=== PATIENT | female | born 1960 | race Caucasian/White ===

== ENCOUNTER 2017-06-15 11:19 | Emergency (ER) | payer BC ==
--- NOTE | 2017-06-15 12:51 | ED Physician Documentation ---
PD HPI LOWER EXT INJURY - Stated complaint Stated Complaint: RT LEG INJURY - Chief complaint Chief Complaint: Ext Problem - History obtained from History obtained from: Patient - History of Present Illness PD HPI LOW EXT INJURY LOCATION: Right, Lower leg (ward) Type of injury: Blunt / blow (heavy piece of furniture she was helping to carry fell against her leg as lowering it and caused bruising and abrasion.) Where injury occurred: Home Timing - onset: Today Timing - details: Abrupt onset Improved by: Rest, Ice Worsened by: Palpating Associated symptoms: Swelling. No: Weakness, Numbness Contributing factors: No: Anticoagulated Similar symptoms before: Has not had sx before Recently seen: Not recently seen Review of Systems Skin: reports: Abrasion (s) Neurologic: denies: Focal weakness, Numbness, Near syncope PD PAST MEDICAL HISTORY - Past Medical History Cardiovascular: None Respiratory: Asthma Neuro: None Endocrine/Autoimmune: None - Present Medications Home Medications: Ambulatory Orders Medication Instructions Recorded Confirmed Albuterol 2 puffs PO Q4HR PRN 06/15/17 06/15/17 HYDROcod/ACETAM 5/325 [[place] 5/325] 1 tab PO Q6H PRN #12 tablet 06/15/17 Levothyroxine [Synthroid] 125 mcg PO DAILY 06/15/17 06/15/17 Trazodone HCl 50 mg PO DAILY PM PRN 06/15/17 06/15/17 - Allergies Allergies/Adverse Reactions: Allergies Allergy/AdvReac Type Severity Reaction Status Date / Time No Known Drug Allergies Allergy Verified 06/15/17 11:25 PD ED PE NORMAL - Vitals Vital signs reviewed: Yes - General General: Alert and oriented X 3, No acute distress, Well developed/nourished - Derm Derm: Normal color, Warm and dry - Extremities Extremities: Other (right ward with bruise and swelling mid anterior and abrasion from mid ward down to just above ankle. No posterior tenderness. ) - Neuro Neuro: Alert and oriented X 3, No motor deficit, No sensory deficit Results - Vitals Vitals: Vital Signs - 24 hr 06/15/17 06/15/17 11:23 14:28 Temperature 36.5 C Heart Rate 49 L 68 Respiratory 14 16 Rate Blood Pressure 130/75 136/70 H O2 Saturation 99 98 - Rads (name of study) right tib/fib Radiology: Prelim report reviewed, EMP read contemporaneously (soft tissue swelling; no fracture) PD MEDICAL DECISION MAKING - ED course Complexity details: reviewed results, considered differential, d/w patient Departure - Departure Disposition: 01 Home, Self Care Clinical Impression: Abrasion, right lower leg, initial encounter Contusion of leg, right Qualifiers: Encounter type: initial encounter Qualified Code(s): S80.11XA - Contusion of right lower leg, initial encounter Condition: Stable Record reviewed to determine appropriate education?: Yes Instructions: ED Abrasion Prescriptions: HYDROcod/ACETAM 5/325 [[place] 5/325] 1 tab PO Q6H PRN #12 tablet PRN Reason: Pain Comments: Cleanse the wound twice daily with soap and water and apply ointment. He can apply ice and elevate the leg today to help reduce swelling. This will likely turn bruised in the lower leg and may even reach down to the ankle area. Tylenol or ibuprofen if needed for pain. Add hydrocodone if needed. Weightbearing and use of the leg as able. There is no fractures noted on x- ray. Recheck if signs of infection. Discharge Date/Time: 06/15/17 14:28
[2017-06-15] MEDS ORDERED: HYDROcod/ACETAM 5/325 MG TABLET PO STA (13:03)
[2017-06-15] MEDS ORDERED: LIDOCAINE OINTMENT 5% 35.44 GM TUBE TOP STA (13:03)
[2017-06-15] MEDS ORDERED: TETANUS/DIPHTHERIA/PERTUSSIS 0.5 ML SYRINGE IM ONE ×2 (13:03→13:14)
[2017-06-15] MEDS ORDERED: NAPROXEN 250 MG TABLET PO STA (13:03)
[2017-06-15] MEDS ORDERED: NAPROXEN 250 MG TABLET PO ONE (13:13)
[2017-06-15] MEDS ORDERED: HYDROcod/ACETAM 5/325 MG TABLET ONE (13:14)
[2017-06-15] MEDS ORDERED: LIDOCAINE OINTMENT 5% 35.44 GM TUBE ONE (13:14)
--- NOTE | 2017-06-15 13:27 | XRAY Preliminary Report ---
Exam: XR Tib/Fib RT IMPRESSION: 1. Mild right leg soft tissue thickening in keeping with reported soft tissue injury/hematoma. 2. No underlying fracture. No radiopaque retained foreign body. [facility] SITE ID: [id number]
--- NOTE | 2017-06-15 13:29 | XRAY Report ---
EXAM: RIGHT TIBIA/FIBULA RADIOGRAPHY EXAM DATE: 06/15/2017 12:24 PM. CLINICAL HISTORY: Hematoma to RLE with pain after injury. COMPARISON: None. TECHNIQUE: 2 views. FINDINGS: Bones: Normal. No fracture or bone lesion. Joints: Nonweightbearing study. Mild osteophyte formation at the knee. Soft Tissues: Mild soft tissue thickening about the leg. IMPRESSION: 1. Mild right leg soft tissue thickening in keeping with reported soft tissue injury/hematoma. 2. No underlying fracture. No radiopaque retained foreign body. [facility] Referring Provider Line: [phone] SITE ID: [id number]
[2017-06-15 14:30] VITALS: BP 136/70
== END 2017-06-15 14:28 | disposition home or self-care (01) ==
LOC: ED 11:19
DX: S80.11XA Contusion of right lower leg, initial encounter (principal); W22.8XXA Striking against or struck by other objects, initial encounter; Y92.009 Unspecified place in unspecified non-institutional (private) residence as the place of occurrence of the external cause; Z23 Encounter for immunization
CPT/HCPCS: 73590; 90471; 90715; 99283; A9270

== ENCOUNTER 2017-12-04 15:16 | Outpatient (CLI) | payer BC ==
[2017-12-04 18:20] LABS: THYROID STIMULATING HORMONE 0.21 uIU/mL (0.34-5.60)
[2017-12-04 18:21] LABS: FREE T4 (FREE THYROXINE) 1.16 ng/dL (0.58-1.64)
[2017-12-06 12:56] LABS: THYROID PEROXIDASE ANTIBODIES 32 IU/mL (<9)
== END 2017-12-04 15:17 | disposition home or self-care (01) ==
LOC: LAB.F 15:16
PROVIDERS: ATTEND Naturopath
DX: E06.3 Autoimmune thyroiditis (principal)
CPT/HCPCS: 36415; 83615; 84439; 84443; 84481; 86376; 86800

== ENCOUNTER 2019-11-02 10:13 | Outpatient (CLI) | payer BC ==
--- NOTE | 2019-11-02 11:05 | XRAY Report ---
Reason: S90.121A CONTUSION OF R LESSER TOE Procedure Date: 11/02/2019 Accession Number: [id number] / [id number] Procedure: XRS - Toe(s) RT CPT Code: Final Report FULL RESULT: EXAM: RIGHT TOE RADIOGRAPHY EXAM DATE: 11/02/2019 10:42 AM. CLINICAL HISTORY: S90. 121A CONTUSION OF R TOE. COMPARISON: None. TECHNIQUE: 3 views. FINDINGS: Bones: Lucency in the first distal phalanx is consistent with a comminuted, minimally displaced distal phalangeal fracture. No other fracture line seen. Joints: No subluxations. Soft Tissues: Diffuse soft tissue swelling in the great toe. IMPRESSION: 1. Comminuted minimally displaced first distal phalangeal fracture is seen with surrounding soft tissue swelling. [facility]
== END 2019-11-02 10:14 | disposition home or self-care (01) ==
LOC: DI.S 10:13
PROVIDERS: ATTEND Registered Nurse
DX: S92.421A Displaced fracture of distal phalanx of right great toe, initial encounter for closed fracture (principal)
CPT/HCPCS: 73660

== ENCOUNTER 2019-11-18 14:27 | Outpatient (CLI) | payer BC ==
--- NOTE | 2019-11-19 09:27 | XRAY Report ---
Reason: CLOSED FRACTURE OF DISTAL PHALANX OF GREAT TOE Procedure Date: 11/18/2019 Accession Number: [id number] / [id number] Procedure: XRS - Toe(s) RT CPT Code: Final Report FULL RESULT: EXAM: RIGHT TOE RADIOGRAPHY EXAM DATE: 11/18/2019 02:39 PM. CLINICAL HISTORY: Great toe injury, fracture follow-up. COMPARISON: TOE(S) RT 11/02/2019 10:42 AM. TECHNIQUE: 3 views. FINDINGS: Bones: Again evident is a comminuted but nondisplaced fracture of the first distal phalanx involving the diaphysis and tuft. The fracture line extends to the lateral margin of the first IP joint as before. Joints: Normal. No subluxations. Soft Tissues: Some soft tissue swelling likely present. IMPRESSION: No interval change in nondisplaced comminuted first distal phalangeal fracture. [facility]
== END 2019-11-18 14:28 | disposition home or self-care (01) ==
LOC: DI.S 14:27
PROVIDERS: ATTEND Registered Nurse
DX: S92.424A Nondisplaced fracture of distal phalanx of right great toe, initial encounter for closed fracture (principal)
CPT/HCPCS: 73660

== ENCOUNTER 2020-10-27 11:02 | Outpatient (CLI) | payer BC ==
[2020-10-27 16:00] LABS: ALBUMIN 4.7 g/dL (3.2-5.5); ALBUMIN/GLOBULIN RATIO 1.7 (1.0-2.2); BILIRUBIN,TOTAL 0.7 mg/dL (0.2-1.0); CALCIUM 10.1 mg/dL (8.5-10.3); CREATININE 0.9 mg/dL (0.4-1.0); CRP - C-REACTIVE PROTEIN 1.4 mg/dL (0-1.0); TOTAL PROTEIN 7.4 g/dL (6.7-8.2)
== END 2020-10-27 11:03 | disposition home or self-care (01) ==
LOC: DI.S 11:02 → LAB.S 11:03
PROVIDERS: ATTEND Nurse Practitioner Family
DX: M25.551 Pain in right hip (principal)
CPT/HCPCS: 36415; 80053; 85651; 86140

== ENCOUNTER 2020-10-27 11:19 | Outpatient (CLI) | payer BC ==
--- NOTE | 2020-10-27 15:18 | XRAY Report ---
PROCEDURE: Hip w/Pelvis 2-3V RT INDICATIONS: PX IN RT HIP TECHNIQUE: AP pelvis with lateral view(s) of the bilateral hip(s). COMPARISON: None. FINDINGS: Bones: No fractures or dislocations. Pelvic ring appears intact. No suspicious bony lesions. Mini mal early degenerative narrowing within the hips bilaterally. No erosions. Soft tissues: The visualized bowel gas pattern is normal. No suspicious soft tissue calcifications. IMPRESSION: Minimal early arthritic change within the hips bilaterally. Reviewed by: Marilin Munoz MD on 10/27/2020 3:17 PM PST Approved by: Marilin Munoz MD on 10/27/2020 3:17 PM PST Station ID: [id number]
== END 2020-10-27 11:20 | disposition home or self-care (01) ==
LOC: DI.S 11:19
PROVIDERS: ATTEND Nurse Practitioner Family
DX: M16.0 Bilateral primary osteoarthritis of hip (principal); M25.551 Pain in right hip
CPT/HCPCS: 36415; 80053; 85651; 86140

== ENCOUNTER 2020-12-06 09:49 | Outpatient (CLI) | payer BC ==
--- NOTE | 2020-12-08 07:09 | Mammography Report ---
BILATERAL DIGITAL SCREENING MAMMOGRAM 3D/2D WITH EXAGGERATED CC: 12/06/2020 CLINICAL: Routine screening. Comparison is made to exams dated: 07/23/2018 mammogram, 01/16/2017 mammogram, and 06/29/2015 mammogra m - [facility]. There are scattered fibroglandular elements in both breasts. No significant masses, calcifications, or other findings are seen in either breast. There has been no significant interval change. IMPRESSION: NEGATIVE There is no mammographic evidence of malignancy. A 1 year screening mammogram is recommended. This exam was interpreted at Station ID: [id number]. NOTE: For mammograms, a report in lay terms will be sent to the patient. Approximately 15% of breast malignancies will not be visualized mammographically. In the management of a palpable breast mass, a negative mammogram must not discourage biopsy of a clinically suspicious lesion. Electronically Signed By: Mily phillips/[email or web address]:12/07/2020 16:32:00 ACR BI-RADS Category 1: Negative 3341F PARENCHYMAL PATTERN: (A) - The breast(s) demonstrate(s) scattered fibroglandular densities. BI-RADS CATEGORY: (1) - 1 RECOMMENDATION: (ANNUAL) - Recommend routine annual screening mammography. [id number] 1 year screening LATERALITY: (B)
== END 2020-12-06 09:50 | disposition home or self-care (01) ==
LOC: DI.S 09:49
PROVIDERS: ATTEND Registered Nurse
DX: Z12.31 Encounter for screening mammogram for malignant neoplasm of breast (principal)

== ENCOUNTER 2021-05-23 11:30 | Emergency (ER) | payer BC ==
[2021-05-23 12:17] LABS: BASOPHILS # (AUTO) 0.1 10^3/uL (0.0-0.1); EOSINOPHILS # (AUTO) 0.1 10^3/uL (0.0-0.7); HCT - HEMATOCRIT 43.7 % (37.0-47.0); HGB - HEMOGLOBIN 14.6 g/dL (12.0-16.0); LYMPHOCYTES # (AUTO) 1.7 10^3/uL (1.5-3.5); LYMPHOCYTES % (AUTO) 27.6 %; MEAN CORPUSCULAR HEMOGLOBIN 31.9 pg (27.0-31.0); MEAN CORPUSCULAR HGB CONC 33.4 g/dL (32.0-36.0); MEAN CORPUSCULAR VOLUME 95.6 fL (81.0-99.0); MEAN PLATELET VOLUME 8.9 fL (7.9-10.8); MONOCYTES # (AUTO) 0.4 10^3/uL (0.0-1.0); MONOCYTES % (AUTO) 6.3 %; NEUTROPHILS # (AUTO) 3.9 10^3/uL (1.5-6.6); NEUTROPHILS % (AUTO) 63.8 %; PLT - PLATELET COUNT 251 10^3/uL (130-450); RED BLOOD COUNT 4.57 10^6/uL (4.20-5.40); RED CELL DISTRIBUTION WIDTH 12.6 % (12.0-15.0); WHITE BLOOD COUNT 6.1 x10^3/uL (4.8-10.8)
--- NOTE | 2021-05-23 12:27 | ED Physician Documentation ---
PD HPI ABD PAIN - Stated complaint Stated Complaint: LT SIDE PX - Chief complaint Chief Complaint: Abd Pain - History obtained from History obtained from: Patient - History of Present Illness Timing - onset: How many days ago (2) Timing - details: Gradual onset (She woke with pain in the left low back radiating to the left abdomen 2 days ago that has been consistent and increa sing.) Quality: Aching, Pain Location: LUQ, LLQ Radiation: Lower back, Left flank Improved by: Laying still. No: Eating Worsened by: Moving, Palpation. No: Eating, Breathing Associated symptoms: Nausea. No: Fever, Vomiting, Diarrhea, Dysuria, Hematuria, Loss of appetite Similar symptoms before: Has not had sx before Recently seen: Clinic (Today and was referred to the ER for better evaluation.) Review of Systems Constitutional: denies: Fever, Chills Nose: denies: Rhinorrhea / runny nose, Congestion Throat: denies: Sore throat Respiratory: denies: Cough GI: reports: Abdominal Pain, Nausea. denies: Vomiting, Constipation, Diarrhea : denies: Dysuria, Hematuria, Discharge Skin: denies: Rash PD PAST MEDICAL HISTORY - Past Medical History Cardiovascular: None, Other (history of slow heart rate without symptoms. 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 - Present Medications Home Medications: Ambulatory Orders Medication Instructions Recorded Confirmed Albuterol 2 puffs PO Q4HR PRN 06/15/17 05/23/21 Levothyroxine [Synthroid] 125 mcg PO DAILY 06/15/17 05/23/21 Trazodone HCl 50 mg PO DAILY PM PRN 06/15/17 05/23/21 Docusate Sodium 100Mg Capsule 100 mg PO DAILY #10 cap 05/23/21 [Colace 100Mg Capsule] Oxycodone HCl/Acetaminophen 1 each PO Q4H PRN #14 tablet 05/23/21 [Percocet 5-325 mg Tablet] - Allergies Allergies/Adverse Reactions: Allergies Allergy/AdvReac Type Severity Reaction Status Date / Time No Known Drug Allergies Allergy Verified 05/23/21 11:50 - Social History Does the pt smoke?: No Smoking Status: Never smoker Does the pt drink ETOH?: Yes Does the pt have substance abuse?: No - Immunizations Immunizations are current?: No Immunizations: TDAP >10years/unknown PD ED PE NORMAL - Vitals Vital signs reviewed: Yes - General General: Alert and oriented X 3, No acute distress, Well developed/nourished - Cardiac Cardiac: RRR, No murmur - Respiratory Respiratory: Clear bilaterally - Abdomen Abdomen: Normal bowel sounds, Soft, Non distended, No organomegaly, Other (She has tenderness in the left low back around the level of L4 and L5 but not midline. No rash. No tenderness to light palpation. Left abdomen is tender to palpation with mild local rebound.) - Female Female : Deferred - Rectal Rectal: Deferred - Derm Derm: Normal color, Warm and dry, No rash - Extremities Extremities: No tenderness to palpate, Normal ROM s pain, No edema, No calf tenderness / cord - Neuro Neuro: Alert and oriented X 3, No motor deficit, Normal speech Results - Vitals Vitals: Vital Signs - 24 hr 05/23/21 05/23/21 05/23/21 11:45 13:11 15:30 Temperature 36.6 C 36.1 C L 36.2 C L Heart Rate 55 L 41 L 42 L Respiratory 15 16 16 Rate Blood Pressure 117/78 130/86 H 123/78 O2 Saturation 99 100 100 Oxygen O2 Source Room air - Labs Labs: Laboratory Tests 05/23/21 05/23/21 05/23/21 12:11 12:11 12:41 WBC 6.1 RBC 4.57 Hgb 14.6 Hct 43.7 MCV 95.6 MCH 31.9 H MCHC 33.4 RDW 12.6 Plt Count 251 MPV 8.9 Neut # (Auto) 3.9 Lymph # (Auto) 1.7 [place] # (Auto) 0.4 Eos # (Auto) 0.1 Baso # (Auto) 0.1 Absolute Nucleated RBC 0.00 Nucleated RBC % 0.0 Sodium 139 Potassium 4.4 Chloride 103 Carbon Dioxide 26 Anion Gap 10.0 BUN 16 Creatinine 0.9 Estimated GFR (MDRD) 64 L Glucose 106 H Calcium 9.7 Total Bilirubin 0.8 AST 26 ALT 25 Alkaline Phosphatase 29 L Total Protein 7.6 Albumin 5.0 Globulin 2.6 Albumin/Globulin Ratio 1.9 Lipase 36 Urine Color YELLOW Urine Clarity CLEAR Urine pH 6.5 Ur Specific [place] 1.010 Urine Protein NEGATIVE Urine Glucose (UA) NEGATIVE Urine Ketones NEGATIVE Urine Occult Blood TRACE-INTA Urine Nitrite NEGATIVE Urine Bilirubin NEGATIVE Urine Urobilinogen 0.2 (NORMAL) Ur Leukocyte Esterase NEGATIVE Ur Microscopic Review NOT INDICATED Urine Culture Comments NOT INDICATED - Rads (name of study) abd/pelvic CT Radiology: Prelim report reviewed, See rad report PD MEDICAL DECISION MAKING - ED course Complexity details: reviewed results (Acute process noted on CT urine or low blood count.), re-evaluated patient (Had some improvement in pain with Tylenol and Toradol. However not real significantly improved. I gave her the option of narcotic medicine here in the ER and obtaining a ride versus prescription for home therapy. She opted for discharge with prescription as she is driving herself.), considered differential, d/w patient Departure - Departure Disposition: Home, Self Care Clinical Impression: Acute left flank pain Condition: Stable Record reviewed to determine appropriate education?: Yes Instructions: ED Abdominal Pain Unkn Cause Follow-Up: Darlyn Smith, [employer] [Primary Care Provider] - Prescriptions: Docusate Sodium 100Mg Capsule [Colace 100Mg Capsule] 100 mg PO DAILY #10 cap Oxycodone HCl/Acetaminophen [Percocet 5-325 mg Tablet] 1 each PO Q4H PRN #14 tablet PRN Reason: pain Comments: Your CBC, urine test, CT scan did not show any acute process. With that, I presume that this is most likely a muscular pain as that would not show on the above tests. Over the next 2 to 3 days see if any other symptoms develop to suggest alternate diagnoses. These could include unusual stools, fever, vomiting, rash, other problems. Presuming a muscular pain, I would continue with the Aleve at home with 2 to 3 tablets 3 times a day with food for the next 4 to 5 days. To that add Tylenol every 4 hours if needed for pain or oxycodone if needed for worse pain. This would be intended short-term as I would anticipate improvement over the next few days. Add a stool softener such as docusate for the next week or so to minimize constipation that can be associated with the medicines. Recheck if not improved well over the next 3 to 5 days. My narcotic instructions: I am prescribing a short course of narcotic pain medication for you. These are potentially dangerous and addictive medications that should be used carefully. These medications may constipate you. Take an xluv-tdg-[id number] stool softener such as docusate twice daily with plenty of water while taking these medications. If you go 24 hours without a bowel movement, take auqu-twv-jbltfyu MiraLAX, per package instructions. Do not drink or drive while taking these medications. If you received narcotic or sedating medications while in the emergency department do not drive for 24 hours. Store this medication in a safe, secure place and out of reach of children. It is a violation of federal law to give or sell this medication to another person or to use in a manner other than prescribed. The ED will not refill narcotic prescriptions, including prescriptions lost or stolen. You can dispose of unwanted medications at the [facility] office or at several pharmacies such as [facility].
[2021-05-23 12:30] LABS: ALBUMIN/GLOBULIN RATIO 1.9 (1.0-2.2); BILIRUBIN,TOTAL 0.8 mg/dL (0.2-1.0); CALCIUM 9.7 mg/dL (8.5-10.3); CREATININE 0.9 mg/dL (0.4-1.0); POTASSIUM 4.4 mmol/L (3.5-5.0); TOTAL PROTEIN 7.6 g/dL (6.7-8.2)
[2021-05-23] MEDS ORDERED: ACETAMINOPHEN 325 MG TABLET PO STA (12:53)
[2021-05-23] MEDS ORDERED: KETOROLAC 15 MG/ML VIAL IVP STA (12:53)
[2021-05-23 12:55] LABS: BILIRUBIN,URINE NEGATIVE (NEGATIVE); GLUCOSE, URINE (UA) NEGATIVE (NEGATIVE); KETONES,URINE (UA) NEGATIVE (NEGATIVE); LEUKOCYTE ESTERASE, URINE NEGATIVE (NEGATIVE); NITRITE,URINE NEGATIVE (NEGATIVE); OCCULT BLOOD,URINE TRACE-INTA (NEGATIVE); PH,URINE 6.5 PH (5.0-7.5); PROTEIN,URINE NEGATIVE (NEGATIVE); UROBILINOGEN,URINE 0.2 (NORMAL) E.U./dL (NORMAL)
[2021-05-23 12:59] LABS: CLARITY,URINE CLEAR (CLEAR)
[2021-05-23] MEDS ORDERED: IOPAMIDOL-300 100 ML VIAL ONE (13:17)
--- NOTE | 2021-05-23 14:55 | CT Report ---
PROCEDURE: Abdomen/Pelvis W INDICATIONS: left abd/flank pain 2 days CONTRAST: IV CONTRAST: Isovue 300 ml: 100 PO CONTRAST: *NO PO CONTRAST TECHNIQUE: After the administration of contrast, 5 mm thick sections acquired from the diaphragms to the sym physis. 5 mm thick coronal and sagittal reformats were acquired. For radiation dose reduction, the following was used: automated exposure control, adjustment of mA and/or kV according to patient size . COMPARISON: None. FINDINGS: Image quality: Excellent. ABDOMEN: Lung bases: Platelike atelectasis or scarring noted the left lung base. Heart size is normal. Solid organs: Liver and spleen are normal in size and enhancement. Gallbladder unremarkable Biliar y system is non dilated. Pancreas enhances normally. No adrenal nodules. Kidneys demonstrate sean l size and enhancement, without hydronephrosis. Small 1 cm left renal simple cyst noted. Peritoneum and bowel: Bowel loops demonstrate normal wall thickness and caliber. No free fluid or a ir. Normal appendix identified Nodes and vessels: No retroperitoneal or mesenteric adenopathy by size criteria. Aorta and inferior vena cava are normal in size. Miscellaneous: No ventral hernias. PELVIS: Genitourinary: Bladder wall thickness is normal. Miscellaneous: No inguinal hernias or adenopathy. Bones: No suspicious bony lesions. No vertebral body compression fractures. IMPRESSION: No acute CT abdomen or pelvis findings. No evidence of renal calculi, obstructive uropathy or hydronephrosis. Reviewed by: Robert Hernadez MD on 05/23/2021 1:54 PM AKDT Approved by: Robert Hernadez MD on 05/23/2021 1:54 PM AKDT Station ID: [id number]
[2021-05-23] MEDS ORDERED: IOPAMIDOL-300 100 ML VIAL IVP ONE (15:18)
[2021-05-23 15:32] VITALS: BP 123/78
== END 2021-05-23 15:50 | disposition home or self-care (01) ==
LOC: ED 11:30
DX: R10.32 Left lower quadrant pain (principal)
CPT/HCPCS: 36415; 74177; 80053; 81003; 83690; 85025; 96374; 99284; A9270; Q9967; 81001; 87086

== ENCOUNTER 2021-12-20 10:49 | Outpatient (CLI) | payer BC ==
[2021-12-20 16:07] LABS: THYROID STIMULATING HORMONE < 0.08 uIU/mL (0.34-5.60)
[2021-12-20 16:09] LABS: FREE T3 2.77 pg/mL (2.5-3.9); FREE T4 (FREE THYROXINE) 1.08 ng/dL (0.58-1.64)
== END 2021-12-20 10:50 | disposition home or self-care (01) ==
LOC: LAB.S 10:49
PROVIDERS: ATTEND Registered Nurse
DX: E03.9 Hypothyroidism, unspecified (principal)
CPT/HCPCS: 36415; 84439; 84443; 84481

== ENCOUNTER 2022-02-14 11:36 | Outpatient (CLI) | payer BC ==
[2022-02-14 15:01] LABS: THYROID STIMULATING HORMONE 0.12 uIU/mL (0.34-5.60)
[2022-02-14 15:03] LABS: FREE T3 2.9 pg/mL (2.5-3.9)
[2022-02-14 15:04] LABS: FREE T4 (FREE THYROXINE) 0.94 ng/dL (0.58-1.64)
== END 2022-02-14 11:37 | disposition home or self-care (01) ==
LOC: LAB.S 11:36
PROVIDERS: ATTEND Registered Nurse
DX: E03.9 Hypothyroidism, unspecified (principal)
CPT/HCPCS: 36415; 84439; 84443; 84481

== ENCOUNTER 2022-04-13 15:55 | Outpatient (CLI) | payer BC ==
--- NOTE | 2022-04-13 18:58 | XRAY Report ---
PROCEDURE: Finger(s) RT INDICATIONS: PAIN IN FINGER OF RIGHT HAND TECHNIQUE: AP hand, 2 views of the third finger(s) acquired. COMPARISON: None FINDINGS: Bones: Comminuted fracture of the distal third phalangeal tuft. Normal osseous mineralization present . Soft tissues: No suspicious soft tissue calcifications. No radiopaque foreign body IMPRESSION: Comminuted third distal phalangeal tuft fracture Reviewed by: Robert Hernadez MD on 04/13/2022 5:57 PM LUKAS Approved by: Robert Hernadez MD on 04/13/2022 5:57 PM LUKAS Station ID: [id number]
== END 2022-04-13 15:56 | disposition home or self-care (01) ==
LOC: DI.S 15:55
PROVIDERS: ATTEND Nurse Practitioner Family
DX: S62.632A Displaced fracture of distal phalanx of right middle finger, initial encounter for closed fracture (principal)

== ENCOUNTER 2024-03-18 08:44 | Outpatient (CLI) | payer BC ==
--- NOTE | 2024-03-19 09:38 | Mammography Report ---
BILATERAL DIGITAL SCREENING MAMMOGRAM 3D/2D WITH EXAGGERATED CC: 03/18/2024 CLINICAL: Routine screening. Family history of breast cancer. Comparison is made to exams dated: 12/06/2020 mammogram - [facility] and 07/23/2018 mammogram - [facility]. Both breasts are heterogeneously dense, which may obscure small masses (category c / 51-75% glandular tissue). No significant masses, calcifications, or other findings are seen in either breast. There has been no significant interval change. IMPRESSION: NEGATIVE There is no mammographic evidence of malignancy. A 1 year screening mammogram is recommended. Based on the Tyrer Cuzick model (a risk assessment model) the patient's lifetime risk is 10.6% and he r 10 year risk is 4.8%. According to the ACR, ACS, and NCCN guidelines, an annual breast MRI exam abhijeet ng with mammogram is recommended if the patient's lifetime risk is 20% or greater. This exam was interpreted at Station ID: [id number]. NOTE: For mammograms, a report in lay terms will be sent to the patient. Approximately 15% of breast malignancies will not be visualized mammographically. In the management of a palpable breast mass, a negative mammogram must not discourage biopsy of a clinically suspicious lesion. Electronically Signed By: Serge hewitt/marii:03/18/2024 10:12:39 letter sent: No_Letter ACR BI-RADS Category 1: Negative 3341F PARENCHYMAL PATTERN: (D) - The breast(s) demonstrate(s) heterogeneously dense fibroglandular [facility]. BI-RADS CATEGORY: (1) - 1 RECOMMENDATION: (ANNUAL) - Recommend routine annual screening mammography. [id number] 1 year screening LATERALITY: (B)
== END 2024-03-18 08:45 | disposition home or self-care (01) ==
LOC: DI.S 08:44
DX: Z12.31 Encounter for screening mammogram for malignant neoplasm of breast (principal); R92.333 Mammographic heterogeneous density, bilateral breasts; Z80.3 Family history of malignant neoplasm of breast